=== PATIENT | female | born 1940 | race Caucasian/White ===

== ENCOUNTER 2017-05-16 19:52 | Emergency (ER) | payer MEDICARE ==
[~2017-05-16] VITALS: Ht 170.2 cm; Wt 62.7 kg
[2017-05-16 19:59] VITALS: BP 170/68; PULSE 85; RESP 16; O2SAT 98
--- NOTE | 2017-05-16 20:03 | ED.REPORT ---
HPI-Trauma Minor / Fall Date of Service May 16, 2017 ED Provider: Dr. Delarosa The pt is a 76 y/o female with a hx of HTN and L4-L5 spinal stenosis who presents to the ED via EMS complaining of a head injury, onset just prior to arrival. The pt lost her balance and hit the back of her head on a shelf. She denies LOC, neck pain, abdominal pain, back pain, and decreased motor and sensory function in lower extremities. She drank 3 beers and some vodka prior to the fall. She reports feeling fine in the ED. Nursing Notes Stated Complaint: GROUND LEVEL FALL Chief Complaint: Head, Face, Neck Trauma Nursing Notes Reviewed: Yes Allergies: Coded Allergies: codeine (Verified Adverse Reaction, Severe, nausea and vomiting, 05/16/17) General Time Seen by MD: 20:02 Chief Complaint Head injury Hx Obtained From: Patient Arrived By: Ambulance Onset Occurred: Just prior to arrival Context of Onset: EtOH use Symptom Duration: 46 - 59 minutes Severity: Current: No pain currently Severity: Maximum: No pain Recent Healthcare: No recent doctor visit Past Medical History Past Medical History L4-L5 spinal stenosis Reports: Hypertension Past Surgical History Right knee Reports: Hysterectomy Smoking History Unknown if Ever Smoker Social History 2-3 beers per day Drug Use: Denies drug use Ambulatory Status Independent Review of Systems Reports: head injury Denies: decreased motor and sensory function in lower extremities. Musculoskeletal: Denies: Back pain, Neck pain Neurologic: Denies: Change LOC Complete sys rev & neg: except as marked. GI: Denies: Abdominal pain Physical Exam Initial Vital Signs Vital Signs (First) Date Time Temp Pulse Resp B/P Pulse Ox O2 Delivery O2 Flow Rate FiO2 05/16/17 19:59 36.5 85 16 170/68 98 Room Air Initial VS: Reviewed Respiratory: Breath sounds normal, Clear to auscultation, No respiratory distress Cardiovascular: Regular rate & rhythm, Heart sounds normal, Intact distal pulses Abdomen / GI: Soft, Non-tender, No guarding, No rebound, No distention Extremities: Vascular intact, Neuro intact, No swelling, No tenderness Skin: Warm, Dry, No cyanosis Neurologic: Alert, Oriented, Nonfocal General/Constitutional: Awake, Alert, No acute distress Neck: Atraumatic, Supple, Full range of motion, No swelling, Non-tender Head / Eyes: Atraumatic, PERRL Right sided occipital hematoma Interpretation & Diagnostics Lab Results Interpretation Test 05/16/17 21:06 Hold Urine Received (Received) CT Head Interpretation IMPRESSION: No acute intracranial disease process. Dictated by: Deepa Goldstein MD, PhD on 05/16/2017 at 20:50 Approved by: Deepa Goldstein MD, PhD on 05/16/2017 at 20:51 Study: Head CT no contrast Interpretation / Wet Read by: Interpret - Radiologist Re-Eval/Medical Decision Med Decision/Clinical Course Head CT performed due to palpable scalp hematoma. Head CT negative. Patient is at her normal functional baseline and will be discharged. Return and follow-up precautions given Source of Hx: Old records Re-Evaluation/Progress : Time of Eval: 21:00 Re-Evaluation/Progress Note: Rechecked pt. Discussed lab results, imaging results, diagnosis and plan to discharge. Pt understands and agrees with the plan. F/U instruction and RTER warning given. All questions addressed. Counseled Regarding: Diagnosis, Lab results, Need for follow-up, When/why to return to ED Discharge & Departure Impression: Primary Impression: Head injury Encounter type: initial encounter Qualified Code: S09.90XA - Unspecified injury of head, initial encounter Disposition: Home Discharge Condition All VS Reviewed: Yes Condition: Stable Additional Instructions: Your head CT is reassuring. Follow-up with your regular doctor. Return to the ER as needed for worsening symptoms. Referrals: OTHER,PHYSICIAN Scribe Attestation Portions of this note were transcribed by Jairo Acosta. I,, personally performed the history,physical exam and medical decision-making;I reviewed and confirmed the accuracy of the information in the transcribed note. Signed by Donato Calderon. 05/16/17 Sander Delarosa DO May 16, 2017 20:03 Jairo Acosta May 16, 2017 20:30
--- NOTE | 2017-05-16 20:53 | DRSVH ---
PROCEDURE: CT BRAIN WITHOUT CONTRAST ([id number]) INDICATIONS: fall, scalp hematoma TECHNIQUE: Noncontrast 4.5 mm thick angled axial sections acquired from the foramen magnum to the vertex, with c oronal reformats. COMPARISON: None. FINDINGS: Image quality: Excellent. CSF spaces: Basal cisterns are patent. No extra-axial fluid collections. The ventricles are symmet dora in size and shape. Brain: No intracranial bleeds or masses. There is cerebral volume loss for age, with resultant vent ricular and sulcal prominence. There are periventricular and deep white matter chronic small vessel ischemic changes. There is intracranial internal carotid artery atherosclerosis. Skull and face: Calvarium and visualized facial bones appear intact, without suspicious lesions. Sinuses: Functional endoscopic sinus surgery changes noted. Visualized sinuses and mastoids are adriana ar. IMPRESSION: No acute intracranial disease process. Dictated by: Deepa Goldstein MD, PhD on 05/16/2017 at 20:50 Approved by: Deepa Goldstein MD, PhD on 05/16/2017 at 20:51
[2017-05-16 21:41] VITALS: BP 123/53; PULSE 80; RESP 20; O2SAT 98
== END 2017-05-16 21:41 | disposition home or self-care (01) ==
LOC: SED 19:52 → EDBD 19:52 → SED 21:41
DX: S00.03XA Contusion of scalp, initial encounter (principal); W01.198A Fall on same level from slipping, tripping and stumbling with subsequent striking against other object, initial encounter; Y93.01 Activity, walking, marching and hiking; Y99.8 Other external cause status; Y92.018 Other place in single-family (private) house as the place of occurrence of the external cause; F10.10 Alcohol abuse, uncomplicated; I10 Essential (primary) hypertension; Z87.891 Personal history of nicotine dependence; Z87.39 Personal history of other diseases of the musculoskeletal system and connective tissue; Z88.5 Allergy status to narcotic agent